=== PATIENT | male | born 1995 | race Caucasian/White ===

== ENCOUNTER 2018-01-23 12:38 | Inpatient (IN) | payer OTHER ==
[~2018-01-23] VITALS: Ht 182.9 cm; Wt 81.6 kg
[2018-01-23] MEDS ORDERED: diphenhydrAMINE 50 MG CAPSULE PO PRN (17:45)
[2018-01-23] MEDS ORDERED: MAGNESIUM HYDROXIDE 30 ML LIQUID UDC PO PRN (17:45)
[2018-01-23] MEDS ORDERED: LORAZEPAM 1 MG TABLET PO PRN ×2 (17:45)
[2018-01-23] MEDS ORDERED: THIAMINE HCL 200 MG/2 ML VIAL IM ONE (17:45)
[2018-01-23] MEDS ORDERED: MIRALAX 17 GM POWD.PACK PO PRN (17:45)
[2018-01-23] MEDS ORDERED: LORAZEPAM 2 MG/1 ML VIAL IM PRN (17:45)
[2018-01-23] MEDS ORDERED: DICYCLOMINE HCL 20 MG TABLET PO PRN (17:45)
[2018-01-23] MEDS ORDERED: MAG HYDROX/AL HYDROX/SIMETH 30 ML LIQUID UDC PO PRN (17:45)
[2018-01-23] MEDS ORDERED: LOPERAMIDE HCL 2 MG CAPSULE PO PRN ×2 (17:45)
[2018-01-23 17:51] VITALS: BP 140/95
--- NOTE | 2018-01-23 18:04 | NUR ---
PRE ASSESSMENT: A 22 YO MALE IN INTAKE PRESENTS WITH BLUNTED AFFECT AND SAD MOOD. HIS FACE IS FLUSHED. HE IS WITHDRAWN. HE REPORTS DRINKING A 12 PACK OF BEER DAILY. LAST DRANK 1 BEER, 3 HOURS AGO. HE ALSO REPORTS SMOKING 1/2 OUNCE OF MARIJUANA DAILY. LAST SMOKED A JOINT 3 HOURS AGO. HE ALSO REPORTS THAT HIS BEST FRIEND TOOK HIS OWN LIFE A COUPLE OF WEEKS AGO AND HE HAS TAKEN 1 MG OF XANAX 4 TIMES IN THE LAST 2 WEEKS. 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 HE STATES HE WANTS HELP. BP 140/95 P 74 R 18 02 SAT 97% WILL ENDORSE TO CAMP PROGRAM DIRECTOR NURSE. Addendum: 01/23/18 at 1832 by SIN SOLIMAN RN PT REPORTS A SEIZURE 2 MONTHS AGO FROM UNKNOWN CAUSE. Addendum: 01/23/18 at 183 by SIN SOLIMAN RN HE DENIES S/I AND H/I.
[2018-01-23] MEDS ORDERED: BUSP10TA3 PO (18:16)
[2018-01-23] MEDS ORDERED: VIBRYD PO (18:16)
[2018-01-23 18:31] LABS: BASOPHILS # (AUTO) 0.1 K/uL (0.0-8.0); BASOPHILS % (AUTO) 0.7 % (0.0-2.0); EOSINOPHILS % (AUTO) 0.4 % (0.0-7.0); HEMATOCRIT 44.1 % (36.7-47.1); HEMOGLOBIN 15.4 g/dL (12.5-16.3); LYMPHOCYTES % (AUTO) 15.2 % (20.5-51.5); MEAN CORPUSCULAR HEMOGLOBIN 30.5 uug (23.8-33.4); MEAN CORPUSCULAR HGB CONC 35 g/dL (32.5-36.3); MEAN CORPUSCULAR VOLUME 87.2 fL (73.0-96.2); MONOCYTES % (AUTO) 7.6 % (0.0-11.0); NEUTROPHILS # (AUTO) 10.1 K/uL (1.8-8.9); NEUTROPHILS % (AUTO) 76.1 % (38.5-71.5); PLATELET COUNT (AUTO) 621 K/uL (152-348); RED BLOOD CELL COUNT(AUTO) 5.06 MIL/uL (4.06-5.63); WHITE BLOOD COUNT (AUTO) 13.2 K/uL (3.6-10.2)
[2018-01-23 18:37] LABS: ALANINE AMINOTRANSFERASE 55 U/L (16-63); ALKALINE PHOSPHATASE 113 U/L (50-136); AMYLASE 74 U/L (25-115); ASPARTATE AMINOTRANSFERASE 37 U/L (15-37); BILIRUBIN,TOTAL 0.4 mg/dL (0.2-1.0); CARBON DIOXIDE 28 mmol/L (21-32); CHLORIDE 100 mmol/L (98-107); GLUCOSE 101 mg/dL (74-106); POTASSIUM 3.6 mmol/L (3.5-5.1); TOTAL PROTEIN, SERUM 9.2 g/dL (6.4-8.2); UREA NITROGEN, BLOOD 9 mg/dL (7-18)
[2018-01-23 18:41] LABS: ETHANOL < 3 MG/DL (0-0)
[2018-01-23 18:48] LABS: *AMPHETAMINE, URINE NEGATIVE (NEGATIVE); *BARBITURATE, URINE NEGATIVE (NEGATIVE); *CANNABINOID, URINE POSITIVE (NEGATIVE); *COCCAINE, URINE NEGATIVE (NEGATIVE); *OPIATE, URINE NEGATIVE (NEGATIVE); *PHENCYCLIDINE SCREEN,URINE NEGATIVE (NEGATIVE)
[2018-01-23] MEDS: LORAZEPAM 1 MG TABLET PO SCH ×2 (18:57→21:10)
--- NOTE | 2018-01-23 18:58 | NUR ---
ADMINISTERED THIAMINE IM ORDERED. ADMINISTERED ATIVAN 2 MG PO ORDERED. HOME MEDS RECONCILED. VS WNL. WILL ENDORSE TO ONCOMING NIGHT NURSE.
[2018-01-23 20:00] VITALS: BP 132/76
--- NOTE | 2018-01-23 20:00 | NUR ---
ADMISSION NOTE Pt arrived ambulatory from [facility] Intake to the third floor accompanied by a GLUE WHEEL OPERATOR at 1800. Pt is a 22 year old male admitted on 01/23/18 for ETOH withdrawal. Pt is full code with NKA. He reports a PMHx of anxiety, depression and panic attacks. He reports withdrawal induced seizure 2 months ago. He denies any suicidal ideations. He reports having a PCP located in [place] by the name of Dr. Santos. He reports taking home medications of Buspirone 10 mg and Viibryd 20mg. Medications have been reconciled. He reports he was at [facility] in [place] for a 30 days in June 2017. His last sobriety was for 6 months, 6 months ago. He reports he is here because, " My best friend committed suicide, I've been coping with alcohol" He describes his current use as: 1. ETOH (beer) 12 pack daily for 6 months Last dose: 12 pack on 01/23/18 3 hours prior to admission 2. Xanax intermittently. 1 mg four times in the last 2 weeks. Last dose: 1 mg on 01/18/18 3. Marijuana 3 grams daily x 4 years. Last dose: 1 joint on 01/23/18 He describes his withdrawal symptoms as " hot flashes, anxiety, sweats" Upon assessment, pt is alert and oriented x4, speech is clear, and audible. Pt noted to be anxious, agitated, restless, depressed, worried, and sad with flat affect. He is noted with clammy skin, flushed face, decreased appetite, tremors, and sensation of pins and needles. Heart rate regular. Denies chest pain or SOB. PERRLA, breathing is even and unlabored, lung sounds clear. Abdomen is soft and non-distended. Bowel sounds present in all quadrants, last BM 01/22/18. Pt reports that BM is regular. Pt's skin is warm, moist and intact. MD aware of pt's admission. Pt oriented to room and unit. Safety measures in place. Will continue to monitor.
--- NOTE | 2018-01-24 | NUR ---
VITALS REFUSED, CIWA DEFERRED 0000 vitals refused. Pt stated at beginning of shift " I haven't slept much in the last few days, I'd like to just sleep and not be woken up." CIWA deferred, pt is lying in bed with eyes closed noted to be asleep. Breathing is even and unlabored, safety measures in place. Will monitor.
--- NOTE | 2018-01-24 04:00 | NUR ---
VITALS REFUSED, CIWA DEFERRED 0400 vitals refused. Pt stated at beginning of shift " I haven't slept much in the last few days, I'd like to just sleep and not be woken up." CIWA deferred, pt is lying in bed with eyes closed noted to be asleep. Breathing is even and unlabored, safety measures in place. Will monitor.
--- NOTE | 2018-01-24 07:22 | NUR ---
END OF SHIFT Pt is a 22 year old male patient admitted on 01/23/18 for ETOH withdrawal. He remains alert and oriented x4. He was noted with anxiety, restlessness, irritability, flushed face, clammy skin, and depressed mood during the shift. He is scheduled to start a 4 day Ativan taper today (01/24). He received a one time Ativan 2 mg as ordered by Dr. Zamora. He slept a total of 8 hrs, Intake:855mL, Void: x2,BM:0, CIWA:11 at 2100. Breathing is even and unlabored, safety measures in place. Endorsed to AM shift.
[2018-01-24 08:00] VITALS: BP 108/64
--- NOTE | 2018-01-24 08:15 | NUR ---
START OF SHIFT: RECEIVED PT A/O X 4. HE PRESENTS WITH BLUNTED AFFECT AND SAS MOOD. HE DENIES S/I AND H/I. HE REPORTS ANXIETY,DEPRESSION, RESTLESSNESS AND IRRITABILITY. HE STATES HIS APPETITE IS POOR. HE IS FLUSHED AND FINE TREMORS NOTED TO BUE. CIWA 10. ATIVAN TAPER IN PROGRESS TO MANAGE S/S OF W/D. SZ PRECAUTIONS IN PLACE. HE REFUSED PPD. ENCOURAGED INCREASED FLUIDS TO ASSIST IN FACILITATING DETOX PROCESS. WILL CONTINUE TO MONITOR AND OFFER SUPPORT.
[2018-01-24] MEDS ORDERED: TUBERCULIN,PURIF.PROT.DERIV. 5 TU/0.1 ML TEST ID ONE (09:00)
[2018-01-24] MEDS: MULTIVITAMINS,THERAPEUTIC TABLET PO SCH (09:27)
[2018-01-24] MEDS: FOLIC ACID 1 MG TABLET PO SCH (09:27)
[2018-01-24] MEDS: THIAMINE HCL 100 MG TABLET PO SCH (09:27)
[2018-01-24] MEDS: LORAZEPAM 1 MG TABLET PO SCH ×3 (09:27→17:24)
[2018-01-24 12:00] VITALS: BP 102/63
[2018-01-24] MEDS ORDERED: VIIBRYD 20 MG PO SCH (14:45)
[2018-01-24 16:00] VITALS: BP 130/81
[2018-01-24] MEDS: ONDANSETRON 4 MG/2 ML VIAL IM PRN (16:44)
--- NOTE | 2018-01-24 16:45 | NUR ---
PT IS VOMITING IN ROOM AND STATES HE HAS BEEN VOMITING OVER AND OVER FOR A GOOD 5 MINUTES. ZOFRAN IM ADMINISTERED TO L DELTOID. WILL MONITOR EFFECTIVENESS.
[2018-01-24] MEDS ORDERED: busPIRone 10 MG TABLET PO SCH (17:00)
--- NOTE | 2018-01-24 17:15 | NUR ---
IM ZOFRAN EFFECTIVE. VOMITING CEASED.
[2018-01-24] MEDS: busPIRone 10 MG TABLET PO SCH (17:24)
--- NOTE | 2018-01-24 19:17 | NUR ---
END OF SHIFT: PT CONTINUES ON ATIVAN TAPER TO MANAGE S/S OF W/D WHICH INCLUDE ANXIETY,RESTLESSNESS,FINE TREMORS AND THIS AFTERNOON, VOMITING. LAST CIWA 6. IM ZOFRAN GIVEN AND EFFECTIVE TO MANAGE VOMITING. PT HAS BEEN COMPLIANT WITH INCREASED FLUIDS AND REST ENCOURAGED. SXZ PRECAUTIONS NOTED. HE DENIES S/I AND H/I. WILL PASS SHIFT REPORT TO ONCOMING NIGHT NURSE.
--- NOTE | 2018-01-24 19:30 | NUR ---
START OF SHIFT Received 22 year old male patient admitted on 01/23/18 for ETOH, Xanax and Marijuana withdrawal. Pt is alert and oriented x4. Pt noted to be anxious, agitated, restless, diaphoretic, angry, and depressed. He is receiving a modified Ativan taper and is tolerating well. Per endorsement, pt received PRN Zofran IM for episode of nausea/vomiting x1. Last CIWA:6 at 1600. Breathing is even and unlabored, safety measures in place. Will monitor.
[2018-01-24 20:00] VITALS: BP 141/79
[2018-01-24] MEDS: VIIBRYD 20 MG PO SCH (20:16)
[2018-01-24] MEDS ORDERED: LORAZEPAM 1 MG TABLET PO SCH (21:00)
[2018-01-24] MEDS: ONDANSETRON ODT 4 MG TAB.RAPDIS SL PRN (22:25)
[2018-01-24] MEDS ORDERED: TRAZODONE 50 MG TABLET PO ONE (22:30)
--- NOTE | 2018-01-24 22:31 | NUR ---
PRN ATIVAN, MAALOX, ZOFRAN, ONE TIME TRAZODONE Pt complains of heartburn, anxiety, restlessness, agitation, nausea with episode of vomiting and difficulty sleeping. PRN Ativan, Maalox, Zofran and one time trazodone administered as ordered. Safety measures in place. Will monitor effectiveness. Addendum: 01/25/18 at 0009 by VIRGINIA MCMULLEN RN ABBY:15
--- NOTE | 2018-01-24 23:00 | NUR ---
PRN ZOFRAN REASSESSMENT Medication effective. No nausea or episode of vomiting noted. Breathing even and unlabored, safety measures in place. Will monitor.
--- NOTE | 2018-01-24 23:31 | NUR ---
PRN MAALOX, ATIVAN, TRAZODONE REASSESSMENT Medications effective. Pt is lying in bed with eyes closed noted to be asleep. No facial grimacing noted. Breathing is even and unlabored, safety measures in place. Will monitor.
--- NOTE | 2018-01-25 | NUR ---
VITALS REFUSED, CIWA DEFERRED 0000 vitals refused per pt. Pt stated " I have trouble sleeping, If I'm sleeping don't wake me up." CIWA deferred pt lying in bed with eyes closed noted to be asleep. Breathing is even and unlabored, safety measures in place. Will monitor.
--- NOTE | 2018-01-25 04:00 | NUR ---
VITALS REFUSED, CIWA DEFERRED 0400 vitals refused per pt. Pt stated at the beginning of shift " I have trouble sleeping, If I'm sleeping don't wake me up." CIWA deferred pt lying in bed with eyes closed and is noted to be asleep. Breathing is even and unlabored, safety measures in place. Will continue to monitor.
--- NOTE | 2018-01-25 07:20 | NUR ---
END OF SHIFT Pt is a 22 year old male patient admitted on 01/23/18 for ETOH, Xanax and Marijuana withdrawal. He remains alert and oriented x4. Pt was noted to be anxious, agitated, restless, diaphoretic, nauseous, angry, and depressed during the shift. He continues on a modified 4 day Ativan taper and is tolerating well. At 2231 he received one time Trazodone, PRN Maalox, Zofran and Ativan 2 mg. He slept a total of 6 hrs, Intake: 1,000mL, Void: x3, BM0, CIWA:15 at 2231. Breathing is even and unlabored, safety measures in place. Endorsed to AM shift.
--- NOTE | 2018-01-25 07:45 | NUR ---
START OF SHIFT Rcvd endorse from ongoing nurse, client is in bed, covered from head to toe with several blankets, client is a/o x 4. he presents with depressed mood, flat affect, moist skin, fine tremors, and difficulty concentrating. He appears disheveled, chapped lips, and dark circles under eyes. Client reports restless legs, anxiety, cold/chills, a sense of panic, and difficulty sleeping. Encourage client to drink PO fluids as tolerated to facilitate detox. Encourage client to attend group therapy to learn skills to maintain sober. Last WA 15 @ 2221. PRN medication administered overnight and noted per protocol. Client slept 6 hrs. Seizure precautions in place. Call light within reach.
[2018-01-25 08:00] VITALS: BP 105/68
[2018-01-25 08:06] LABS: HEPATITIS B SURFACE AG Negative (Negative)
[2018-01-25] MEDS ORDERED: HOME MED MISCELLANEOUS XX SCH (09:00)
[2018-01-25] MEDS ORDERED: LORAZEPAM 1 MG TABLET PO SCH ×3 (09:00→21:00)
[2018-01-25] MEDS: busPIRone 10 MG TABLET PO SCH ×4 (09:36→16:37)
[2018-01-25] MEDS: FOLIC ACID 1 MG TABLET PO SCH (09:36)
[2018-01-25] MEDS: MULTIVITAMINS,THERAPEUTIC TABLET PO SCH (09:36)
[2018-01-25] MEDS: THIAMINE HCL 100 MG TABLET PO SCH (09:36)
[2018-01-25 12:26] VITALS: BP_SYST 125; BP_SYST 131; BP_DIAS 85; BP_DIAS 89
[2018-01-25] MEDS ORDERED: TUBERCULIN,PURIF.PROT.DERIV. 5 TU/0.1 ML TEST ID ONE (15:45)
--- NOTE | 2018-01-25 16:30 | NUR ---
PPD Test administered to L forearm.
[2018-01-25 16:53] VITALS: BP 122/85
--- NOTE | 2018-01-25 19:07 | NUR ---
END OF SHIFT Endorse client to incoming nurse, client is in group therapy, a/o x 4. he continues to present with depressed mood, flat affect, moist skin, fine tremors, restless legs, anxiety, and cold/chills. Adequate PO fluid intake 2275mL, void x 3. Client consumes 75% of meals. Client is compliant with 2/3 of group therapy. Last CIWA 13 @ 1600. PPD Test administered to L forearm, to be read in 48-[address] hrs[address] precautions in place. Call light within reach.
--- NOTE | 2018-01-25 19:49 | NUR ---
START OF SHIFT NOTE Rcvd. Report from outgoing nurse. Pt. is in his room and is A/O to person, place, time, and purpose. Pt. presents with anxiety, restlessness, agitation, nausea, and body aches. Pt. rcvd no PRN medications. Pt. is on a modified 4 day Ativan taper, this is day 2. Pt. was compliant w/ Tx and attended group therapy sessions. Pt. denies S/I and H/I. Last CIWA 13 @ 1600. Call light within reach. Pt. will continue to be monitored and needs met.
[2018-01-25 20:00] VITALS: BP 137/90
[2018-01-25] MEDS: GABAPENTIN 300 MG CAPSULE PO SCH (20:54)
[2018-01-25] MEDS: VIIBRYD 20 MG PO SCH (20:54)
[2018-01-25] MEDS: TRAZODONE 50 MG TABLET PO PRN (22:13)
--- NOTE | 2018-01-25 22:13 | NUR ---
PRN ADMINISTRATION Pt. rcvd PRN Trazodone 50 mg for anxiety and restlessness leading to insomnia. Will reassess in 1 hr.
--- NOTE | 2018-01-25 23:13 | NUR ---
PRN REASSESSMENT Pt. after rcving Trazodone 50 mg is in bed w/ his eyes closed. Pt.'s breathing is unlabored and even.
--- NOTE | 2018-01-26 00:03 | NUR ---
RN NOTE Pt. deferred CIWA and refused V/S. Pt. is in bed w/ his eyes closed. Pt.'s breathing is unlabored and even.
--- NOTE | 2018-01-26 04:02 | NUR ---
RN NOTE Pt. deferred CIWA and refused V/S. Pt. is in bed w/ his eyes closed. Pt.'s breathing is unlabored and even.
--- NOTE | 2018-01-26 07:14 | NUR ---
END OF SHIFT NOTE Endorsed pt. to oncoming nurse. Pt. is a 22 y/o male A/O to person, place, time, and purpose. Pt. was admitted for medically supervised withdrawal from ETOH and Benzodiazepines. Pt. continues to present with anxiety, restlessness, agitation, nausea, and body aches. Pt. rcvd PRN Trazodone 50 mg @ 2213 for anxiety and insomnia, noted effective. Pt. is on a modified 4 day Ativan taper. Pt. was compliant w/ Tx and attended group therapy sessions. Pt.s fluid intake was 591 ml. Pt. voided 2 times and slept for 7 hrs. Last CIWA 13 @ 1999. Call light within reach.
--- NOTE | 2018-01-26 07:30 | NUR ---
START OF SHIFT Rcvd endorse from ongoing nurse, client is sitting at the edge of bed, a/o x 4. he presents with anxious mood, flat affect, avoidant gaze, dark circles noted under eyes, dry lips, flushed face, goosebump, clammy skin, and difficulty concentrating. Client reports in a loud voice feeling very anxious, he states, "I just don't know why, but I feel very jumpy, like I need to be very alert of what's going on around me." fatigued due to inability to sleep, cold/chills, a sense of panic, nausea, headache, and decreased appetite.Encourage client to drink PO fluids as tolerated to facilitate detox. Encourage client to attend group therapy to learn skills to maintain sober. Last CIWA 13 @ 1999. PRN Trazodone for inability to sleep, client slept 7 hrs[address] Seizure precautions in place. Call light within reach.
[2018-01-26] MEDS: ONDANSETRON 4 MG/2 ML VIAL IM PRN (08:08)
--- NOTE | 2018-01-26 08:11 | NUR ---
PRN Pt with vomit episodes unwitnessed. Zofran IM prn per MD order given and tolerated well.
[2018-01-26 08:17] VITALS: BP 134/79
[2018-01-26] MEDS: LORAZEPAM 1 MG TABLET PO SCH ×3 (08:25→20:40)
[2018-01-26] MEDS: GABAPENTIN 300 MG CAPSULE PO SCH ×3 (08:25→20:40)
[2018-01-26] MEDS: MULTIVITAMINS,THERAPEUTIC TABLET PO SCH (08:25)
[2018-01-26] MEDS: THIAMINE HCL 100 MG TABLET PO SCH (08:25)
[2018-01-26] MEDS: FOLIC ACID 1 MG TABLET PO SCH (08:25)
[2018-01-26] MEDS: busPIRone 10 MG TABLET PO SCH ×3 (08:26→17:18)
--- NOTE | 2018-01-26 08:38 | NUR ---
Reassess PRN Zofran 4mg IM, client reports relief from nausea, and no more episodes of emesis. Call light within reach.
[2018-01-26] MEDS ORDERED: LORAZEPAM 1 MG TABLET PO SCH (09:00)
[2018-01-26] MEDS ORDERED: LORAZEPAM 1 MG TABLET PO ONE (11:00)
[2018-01-26 12:10] VITALS: BP 141/91
[2018-01-26 17:10] VITALS: BP 148/89
--- NOTE | 2018-01-26 17:15 | NUR ---
Therapist prompted client to attend the next group meeting. Client stated that he would attend.
[2018-01-26] MEDS: IBUPROFEN 400 MG TABLET PO PRN (17:18)
[2018-01-26] MEDS: ACETAMINOPHEN 325 MG TABLET PO PRN (17:18)
[2018-01-26] MEDS: CLONIDINE HCL 0.1 MG TABLET PO PRN (17:19)
--- NOTE | 2018-01-26 17:19 | NUR ---
PRN Clonidine 0.1mg PO, Motrin 400mg PO, Tylenol 650mg PO administered for anxiety, agitation, and headache 02/11. Call light within reach. Addendum: 01/26/18 at 1740 by BENJAMÍN COWART RN BP 148/89, P 102
[2018-01-26] MEDS ORDERED: HYDR-3895 PO (18:07)
[2018-01-26] MEDS ORDERED: IBUP-1953 PO (18:07)
[2018-01-26] MEDS ORDERED: CLON0.1T14 PO (18:07)
[2018-01-26] MEDS ORDERED: GABA-534 PO (18:07)
[2018-01-26] MEDS ORDERED: TRAZ-144 PO (18:07)
--- NOTE | 2018-01-26 18:19 | NUR ---
Reassess PRN Clonidine 0.1mg, Motrin 400mg, Tylenol 650mg, BP 127/80, P 88, client reports relief from headache 0/10. client is in break room, having dinner with his peers.
--- NOTE | 2018-01-26 19:18 | NUR ---
END OF SHIFT Endorse client to incoming nurse, client is in group therapy, a/o x 4. he continues to present with anxious mood, flat affect, clammy skin, cold/chills, nausea, restless legs, and difficulty concentrating, Adequate PO fluid intake 2257mL, void x 4. Client consumes 75% of meals. Client is compliant with group therapy. Last CIWA 13 @ 1600. PRN administered and noted per protocol. Seizure precautions in place. Call light within reach.
--- NOTE | 2018-01-26 19:59 | NUR ---
START FO SHIFT NOTE Rcvd report from outgoing nurse. Pt. is in his room. Pt. is a 22 y/o male A/O to person, place, time, and purpose. Pt. was admitted for medically supervised withdrawal from ETOH and Benzodiazepines. Pt. presents w/ anxiety, flat affect, withdrawn mood, restlessness, and body aches. Pt. rcvd PRN Zofran IM pt. reported 2 cases of emesis, noted effective. Pt. also rcvd PRN Motrin and Tylenol for elevated BP 148/101, noted effective. Last WA 13 @ 1600. Call within reach. Pt. will continue to be monitored and needs met.
[2018-01-26 20:01] VITALS: BP 133/83
[2018-01-26] MEDS: VIIBRYD 20 MG PO SCH (20:39)
[2018-01-26] MEDS: TRAZODONE 50 MG TABLET PO PRN (22:06)
--- NOTE | 2018-01-26 22:06 | NUR ---
PRN ADMINISTRATION PRN Trazodone given for anxiety and restlessness leading to insomnia (CIWA 12). Will reassess in 1 hr.
--- NOTE | 2018-01-26 23:06 | NUR ---
PRN REASSESSMENT Pt. reassessed after giving PRN Trazodone 50 mg. Pt. is in bed w/ his eyes closed. Pt.'s breathing is unlabored and even.
--- NOTE | 2018-01-27 00:11 | NUR ---
CIWA DEFERRED AND V/S REFUSED 0000 CIWA deferred and V/S refused by pt. Pt. is in bed w/ his eyes closed. Pt.'s breathing is unlabored and even.
--- NOTE | 2018-01-27 04:08 | NUR ---
CIWA DEFERRED AND V/S REFUSED 0400 CIWA deferred and V/S refused by pt. Pt. is in bed w/ his eyes closed. Pt.' breathing is unlabored and even.
--- NOTE | 2018-01-27 07:16 | NUR ---
END OF SHIFT NOTE Endorsed pt. to oncoming nurse. Pt. is in his room. Pt. is a 22 y/o male A/O to person, place, time, and purpose. Pt. was admitted for medically supervised withdrawal from ETOH and Benzodiazepines. Pt. continues to present w/ anxiety, flat affect, withdrawn mood, restlessness, and body aches while awake. Pt. rcvd PRN Trazodone 50mg @ 2206 for increase anxiety and insomnia (CIWA 12), noted effective. Pt.s fluid intake was 855 ml. Pt. voided 1 time and slept for 7.5 hrs. Last CIWA 12 @ 220. Call within reach.
--- NOTE | 2018-01-27 07:30 | NUR ---
START OF SHIFT Pt 22 y/o male admitted for etoh. Pt received in room on bed with eyes closed resting, but easily arousable to name. Pt alert and oriented to name, place, and time. Perrla. Skin warm and moist to touch. Respirations even and unlabored. Bilateral hand tremors noted. Pt appears disheveled with sad/flat affect. Clothes and empty drink bottles scattered throughout the room. Encouraged to maintain hygiene. It was reported that pt slept for 7.5 hours last night. Last ciwa=12@2200. Pt is on a 4 day ativan taper and is on day 4. Bed on lowest position with side rails x2 up for safety. Call light within reach.
[2018-01-27 08:00] VITALS: BP 126/85
[2018-01-27] MEDS: ONDANSETRON ODT 4 MG TAB.RAPDIS SL PRN (08:25)
[2018-01-27] MEDS: THIAMINE HCL 100 MG TABLET PO SCH (08:26)
[2018-01-27] MEDS: MULTIVITAMINS,THERAPEUTIC TABLET PO SCH (08:26)
[2018-01-27] MEDS: busPIRone 10 MG TABLET PO SCH ×3 (08:26→16:47)
[2018-01-27] MEDS: GABAPENTIN 300 MG CAPSULE PO SCH ×3 (08:27→20:21)
[2018-01-27] MEDS: FOLIC ACID 1 MG TABLET PO SCH (08:27)
--- NOTE | 2018-01-27 08:31 | NUR ---
PRN pt states feels nauseated. Zofran odt prn per MD order given and tolerated well.
[2018-01-27] MEDS ORDERED: LORAZEPAM 1 MG TABLET PO SCH (09:00)
--- NOTE | 2018-01-27 09:31 | NUR ---
PRN EVAL Pt denies any nausea/ vomit at this time.
[2018-01-27] MEDS: CLONIDINE HCL 0.1 MG TABLET PO PRN (11:29)
[2018-01-27] MEDS: ONDANSETRON 4 MG/2 ML VIAL IM PRN (11:31)
--- NOTE | 2018-01-27 11:31 | NUR ---
PRN Pt states vomitted x1 unwitnessed. Pt mk=494/91. Catapres po prn per MD order and Zofran IM prn per MD order given and tolerated well.
[2018-01-27] MEDS: IBUPROFEN 400 MG TABLET PO PRN ×2 (11:38→20:37)
--- NOTE | 2018-01-27 11:38 | NUR ---
PRN pt states has headache /. Ibuprofen po prn per MD order given and tolerated well.
[2018-01-27 12:00] VITALS: BP 124/75
--- NOTE | 2018-01-27 12:31 | NUR ---
PRN EVAL Pt denies any nausea at this time. Pt yg=515/82
--- NOTE | 2018-01-27 12:38 | NUR ---
PRN EVAL Pt states headache 10/14.
[2018-01-27 16:00] VITALS: BP 129/75
[2018-01-27] MEDS: ACETAMINOPHEN 325 MG TABLET PO PRN (16:47)
--- NOTE | 2018-01-27 16:49 | NUR ---
PRN Pt states has headache 6/10. Tylenol po prn per MD order given and tolerated well.
--- NOTE | 2018-01-27 17:49 | NUR ---
PRN KARLO Pt observed on bed with eyes closed resting, but easily arousable to name with television on.
--- NOTE | 2018-01-27 18:16 | NUR ---
END OF SHIFT Pt 22 y/o male admitted for etoh. Pt alert and oriented to name, place, and time. Perrla. Skin warm and moist touch. Respirations even and unlabored. Bilateral hand tremors noted. Pt appears disheveled. Pt with sad affect. Pt denies any SI. Food wrappings and empty drink bottles scattered throughout the room. Encouraged to maintain hygiene. Pt observed isolative to room throughout the morning. Pt attended group activity. Pt with episode of anxiety this afternoon. Pt also with 1 vomit episode noted. Pt was seen by MD today. Pt medication compliant and tolerated well. No ASE noted. Ciwa=9@0800, 9@1200, and 6@1600. PT is on a 4 day ativan taper and is on day 4. Pt is scheduled to be discharged tomorrow. Bed on lowest position with side rails x2 up for safety. Call light within reach.
--- NOTE | 2018-01-27 19:15 | NUR ---
START OF SHIFT Patient is a 22-year-old male admitted on 01/23/18 for ETOH withdrawal with concurrent daily cannabis use and occasional benzo use. Patient has completed a modified Ativan taper, tolerated well, scheduled for discharge tomorrow. Patients last CIWA was 6, per endorsement. Patient received PRN Zofran twice today, sublingual this morning for nausea and IM around 1130 for nausea and emesis x1. Patient also received PRN Motrin PO for headache and PRN Clonidine PO for elevated BP; both noted to be effective. Upon assessment, patient complains of anxiety regarding discharge tomorrow and states "I had a panic attack about 20 minutes ago." Patient appears worried with sad affect, observed in bed with the covers pulled up to his clavicle. Patient is on fall and seizure precautions, last seizure reported was 2 months ago. Safety measures in place, side rails up x2, bed locked in low position, call light within reach. Will continue to monitor.
[2018-01-27 20:00] VITALS: BP 123/74
[2018-01-27] MEDS: VIIBRYD 20 MG PO SCH (20:21)
[2018-01-27] MEDS ORDERED: HYDROXYZINE PAMOATE 25 MG CAPSULE PO ONE (20:30)
[2018-01-27] MEDS ORDERED: CLONIDINE HCL 0.1 MG TABLET PO ONE (20:30)
--- NOTE | 2018-01-27 20:37 | NUR ---
PRN MOTRIN, ONE TIME VISTARIL & CLONIDINE Patient reports headache 8/10 on pain scale, describing pain as "throbbing" and "aching." Patient reports increased anxiety as well as sudden cravings to drink alcohol (ETOH). Patient states, "I have a strong craving to drink right now. I need something to take off the edge." One time Vistaril 50mg and one time Clonidine 0.1mg was given to pt PO for anxiety and agitation. Safety measures in place, side rails up x2, bed locked in low position, call light within reach. Will monitor for effectiveness.
--- NOTE | 2018-01-27 21:37 | NUR ---
PRN MOTRIN, ONE TIME VISTARIL & CLONIDINE REASSESSMENT Patient reports headache 4/10 on pain scale; PRN Motrin effective. Patient states that his anxiety and agitation has decreased; one time Vistaril and Clonidine effective. Safety measures in place, call light within reach. Will continue to monitor.
[2018-01-27] MEDS: TRAZODONE 50 MG TABLET PO PRN (22:10)
--- NOTE | 2018-01-27 22:10 | NUR ---
PRN TRAZODONE Patient reports difficulty sleeping, and requests sleep aid. PRN Trazodone given to patient PO. Safety measures in place, side rails up x2, bed locked in low position, call light within reach. Will monitor for effectiveness.
--- NOTE | 2018-01-27 23:10 | NUR ---
PRN TRAZODONE REASSESSMENT Patient is observed in bed with eyes closed, respirations even and unlabored; PRN Trazodone effective. Safety measures in place, side rails up x2, bed locked in low position, call light within reach. Will continue to monitor.
--- NOTE | 2018-01-28 | NUR ---
VITALS REFUSED, CIWA DEFERRED Patient refused vitals requesting not to be disturbed in order to get enough sleep prior to discharge in the morning. CIWA deferred at this time due to patient sleeping. Respirations even and unlabored, 16/min. Safety measures in place, side rails up x2, bed locked in low position, call light within reach. Will continue to monitor.
--- NOTE | 2018-01-28 04:00 | NUR ---
VITALS REFUSED, CIWA DEFERRED Patient refused vitals at 4AM. CIWA deferred at this time due to patient sleeping. Respirations even and unlabored, 14/min. Safety measures in place, side rails up x2, bed locked in low position, call light within reach. Will continue to monitor.
--- NOTE | 2018-01-28 07:10 | NUR ---
END OF SHIFT Patient is a 22-year-old male admitted on 01/23/18 for ETOH withdrawal with concurrent daily cannabis use and occasional benzo use. Patient has completed a modified Ativan taper, tolerated well, scheduled for discharge today. Patients last CIWA was 11. Patient received PRN Motrin PO for headache, noted as effective. Patient received one time order of Vistaril 50mg PO and Clonidine 0.1mg PO for increased agitation and anxiety; both noted as effective. Patient received PRN Trazodone for difficulty sleeping, effective as well. Patient slept for 9 hours, total intake of 750mL, void x1, stool x0. Patient is on fall and seizure precautions, last seizure reported was 2 months ago. Safety measures in place, side rails up x2, bed locked in low position, call light within reach. Will endorse to day shift.
--- NOTE | 2018-01-28 07:45 | NUR ---
START OF SHIFT Rcvd endorse from ongoing nurse, client is in bed, arms crossed against his chest, he is jas a sweater with the aburto on, he presents with anxious mood, flat affect, clammy skin, and dark circles under eyes. Client reports feeling anxious, but ready to go into treatment, he states, "I am tired, could not sleep well, just thinking." He reports restless legs, decreases appetite, and fatigue. Client completed 4 day Ativan taper. Last CIWA 11 @ 1999. Client is schedule for discharge this am to [facility]. PRN Motrin 400mg PO for REYNAGA, Trazodone 50mg PO for inability to sleep, client slept 8.5hrs. Seizure precautions rendered. Call light within reach.
[2018-01-28 08:04] VITALS: BP 128/84
[2018-01-28] MEDS: GABAPENTIN 300 MG CAPSULE PO SCH (08:28)
[2018-01-28] MEDS: busPIRone 10 MG TABLET PO SCH (08:28)
[2018-01-28] MEDS: FOLIC ACID 1 MG TABLET PO SCH (08:28)
[2018-01-28] MEDS: MULTIVITAMINS,THERAPEUTIC TABLET PO SCH (08:28)
[2018-01-28] MEDS: THIAMINE HCL 100 MG TABLET PO SCH (08:28)
--- NOTE | 2018-01-28 09:41 | NUR ---
Discharge Note Client discharged in stable condition with all valuable, belongings, prescriptions, and home meds. Client denies Suicidal /Homicidal Ideations. To [facility] via private car.
== END 2018-01-28 09:41 | disposition other institution (70) | DRG 895 ==
LOC: SRC 17:05
PROVIDERS: ADMIT Internal Medicine; ATTEND Internal Medicine
PROC: HZ2ZZZZ Detoxification Services for Substance Abuse Treatment (ICD-10-PCS; principal; 2018-01-23)
PROC: HZ31ZZZ Individual Counseling for Substance Abuse Treatment, Behavioral (ICD-10-PCS; 2018-01-24)
PROC: HZ41ZZZ Group Counseling for Substance Abuse Treatment, Behavioral (ICD-10-PCS; 2018-01-25)
DX: F10.230 Alcohol dependence with withdrawal, uncomplicated (principal); R45.851 Suicidal ideations; I15.9 Secondary hypertension, unspecified; F12.20 Cannabis dependence, uncomplicated; Y90.0 Blood alcohol level of less than 20 mg/100 ml; Z59.1 Inadequate housing; G47.00 Insomnia, unspecified; F13.10 Sedative, hypnotic or anxiolytic abuse, uncomplicated; F41.9 Anxiety disorder, unspecified; F32.9 Major depressive disorder, single episode, unspecified; Z81.1 Family history of alcohol abuse and dependence; Z91.89 Other specified personal risk factors, not elsewhere classified; E07.81 Sick-euthyroid syndrome; D72.829 Elevated white blood cell count, unspecified
CPT/HCPCS: 36415; 70030-TC; 80307; 80346; 80349; 83735; 84443; 85025; 86580; 86592; 86705; 86803; 87340; 87806; G0480; J2405; J3411; Q0162